=== PATIENT | male | born 1955 | race Caucasian/White ===

== ENCOUNTER 2023-03-05 06:16 | Observation (INO) | payer BC ==
[2023-03-05] VITALS (12 sets, daily range): BP systolic 87–128; BP diastolic 60–85; PULSE 56–108; RESP 16–22; TEMP 97–97.8; O2SAT 94–100
[~2023-03-05] VITALS: Ht 177.8 cm; Wt 72.2 kg
[~2023-03-05 06:16] MED LIST: ALPR1TAB7 PO; ATOR-47 PO; LISI2.5T47 PO; RIVA10TA PO
[2023-03-05] MEDS ORDERED: BUPIVACAINE 0.25% INJ 50ML VIAL ONE (06:30)
[2023-03-05] MEDS ORDERED: TRANEXAMIC ACID 20 ML ONE (06:30)
[2023-03-05] MEDS ORDERED: EPINEPHrine HCL 1 MG/1 ML AMP ONE ×4 (06:30→08:00)
[2023-03-05] MEDS ORDERED: VANCOMYCIN HCL 1000 MG VL ONE (06:31)
[2023-03-05] MEDS ORDERED: ceFAZolin 1GM/50ML 100 ML IV ONE (06:40)
[2023-03-05] MEDS ORDERED: TETRACAINE 1% INJ 2 ML VIAL IJ ONE (06:44)
[2023-03-05] MEDS ORDERED: ONDANSETRON HCL 4 MG/2 ML VIAL ONE (06:49)
[2023-03-05] MEDS ORDERED: MIDAZOLAM HCL 2MG/2ML 2ml VIAL (1mg/ml) ONE (06:49)
[2023-03-05] MEDS ORDERED: BUPIVACAINE/DEXTROSE MPF 0.75% 2 ML AMP IT ONE (06:49)
[2023-03-05] MEDS ORDERED: DexAMETHasone SOD PHOS 10MG/1ML VIAL INJ ONE (06:49)
[2023-03-05] MEDS ORDERED: SODIUM CHLORIDE LOCK 10 ML ONE (06:49)
[2023-03-05] MEDS ORDERED: PROPOFOL 10 MG/ML 20 ML IV ONE (06:49)
[2023-03-05] MEDS ORDERED: fentaNYL CITRATE 100 MCG/2 ML VL ONE (06:49)
[2023-03-05] MEDS ORDERED: MORPHINE SULF PF 5 MG/10 ML VIAL ONE (06:49)
[2023-03-05] MEDS ORDERED: DexAMETHasone SOD PHOS 4 MG/1ML SDV INJ ONE (08:00)
[2023-03-05] MEDS ORDERED: ROPIVACAINE 0.5% (5MG/ML) 20ML AMPULE IJ ONE (08:28)
[2023-03-05] MEDS ORDERED: MORPHINE SULFATE INJ 2 MG/ml SYRG IV PRN (09:00)
[2023-03-05] MEDS ORDERED: METOCLOPRAMIDE HCL 5MG/ml INJ 2ml VIAL IV PRN (09:00)
[2023-03-05] MEDS ORDERED: NALOXONE HCL 0.4 MG/ML VIAL IV PRN (09:00)
[2023-03-05] MEDS ORDERED: HYDROmorphone HCL 2 MG/ML VL/or syr IV PRN ×2 (09:00)
[2023-03-05] MEDS ORDERED: diphenhdrAMINE HCL 50 MG/1 ML VL IV PRN (09:00)
[2023-03-05] MEDS ORDERED: ACETAMINOPHEN 325 MG TAB PO PRN (09:45)
[2023-03-05] MEDS ORDERED: oxyCODONE HCL 5MG TAB PO PRN ×2 (09:45)
[2023-03-05] MEDS: D5W/LACTATED RINGERS 1,000 ML IV SCH ×2 (10:50→19:45)
[2023-03-05] MEDS ORDERED: ZOLPIDEM TARTRATE 5 MG TAB PO ONE ×2 (12:30→21:00)
[2023-03-05] MEDS ORDERED: NICOTINE 14 MG/24HR TOPICAL PATCH TD ONE (13:15)
[2023-03-05] MEDS: KETOROLAC TROMETH 30 MG/ML 1ML VIAL IV SCH ×2 (14:08→23:42)
[2023-03-05] MEDS: PREGABALIN 25 MG CAP PO SCH ×2 (14:08→21:43)
[2023-03-05] MEDS: ACETAMINOPHEN 325 MG TAB PO SCH ×2 (14:09→23:42)
[2023-03-05] MEDS: ceFAZolin 2 GM/D5W100ml 100 ML IV SCH ×2 (15:17→21:45)
[2023-03-05] MEDS ORDERED: ATORVASTATIN 20 MG TAB PO SCH (22:00)
[2023-03-06] VITALS (12 sets, daily range): BP systolic 108–148; BP diastolic 75–89; PULSE 65–89; RESP 15–20; TEMP 98–98.4; O2SAT 93–99
[2023-03-06] MEDS: KETOROLAC TROMETH 30 MG/ML 1ML VIAL IV SCH ×2 (05:38→14:17)
[2023-03-06] MEDS: ACETAMINOPHEN 325 MG TAB PO SCH ×2 (05:39→14:18)
[2023-03-06] MEDS: D5W/LACTATED RINGERS 1,000 ML IV SCH (05:45)
[2023-03-06] MEDS: PREGABALIN 25 MG CAP PO SCH (09:16)
[2023-03-06] MEDS ORDERED: ASPirin 81 mg TAB PO SCH (10:00)
[2023-03-06] MEDS ORDERED: RIVAROXABAN 2.5 MG TAB PO SCH (10:00)
[2023-03-06] MEDS ORDERED: NICOTINE 14 MG/24HR TOPICAL PATCH TD SCH (10:00)
[2023-03-06] MEDS ORDERED: TAMSULOSIN HYDROCHLORIDE 0.4 MG CAP PO ONE (15:15)
== END 2023-03-06 18:30 | disposition home or self-care (01) ==
LOC: SUR 06:16 → TELE 09:38 → TELE-CENTR 12:38
PROVIDERS: ADMIT Orthopaedic Surgery; ATTEND Orthopaedic Surgery
DX: M17.0 Bilateral primary osteoarthritis of knee (principal); M21.162 Varus deformity, not elsewhere classified, left knee; I11.9 Hypertensive heart disease without heart failure; E11.9 Type 2 diabetes mellitus without complications; G40.909 Epilepsy, unspecified, not intractable, without status epilepticus; E78.5 Hyperlipidemia, unspecified; Z79.899 Other long term (current) drug therapy; Z96.652 Presence of left artificial knee joint
CPT/HCPCS: 27447; 73562; 86850; 86900; 86901; 96365; 96366; 96375; 96376; 97110; 97116; 97163; 97530; C1776; G0378; J0171; J0690; J1100; J1885; J2250; J2270; J2405; J2704; J3010; J3370; J3490